=== PATIENT | female | born 1970 | race Caucasian/White ===

== ENCOUNTER → 2018-04-12 | Outpatient (REF) | payer OTHER ==
[2018-04-12 15:56] LABS: ALBUMIN 3.6 GM/DL (3.2-5.2); ALKALINE PHOSPHATASE 60 U/L (45-117); ALT/SGPT 29 U/L (12-78); ANION GAP 8 MEQ/L (8-16); AST/SGOT 17 U/L (7-37); BILIRUBIN,TOTAL 0.3 MG/DL (0.2-1.0); BLOOD UREA NITROGEN 15 MG/DL (7-18); CARBON DIOXIDE LEVEL 27 MEQ/L (21-32); CHLORIDE LEVEL 107 MEQ/L (98-107); CHOLESTEROL LEVEL 243 MG/DL (<200); CHOLESTEROL RISK RATIO 5.651 (<5); CREATININE FOR GFR 0.67 MG/DL (0.55-1.30); GLOMERULAR FILTRATION RATE > 60.0 (>58); GLUCOSE, FASTING 95 MG/DL (70-100); HDL CHOLESTEROL 43 MG/DL (>40); LDL CHOLESTEROL 161.2 MG/DL (<100); NON-HDL-C 200 MG/DL; POTASSIUM SERUM 4.5 MEQ/L (3.5-5.1); SODIUM LEVEL 142 MEQ/L (136-145); TOTAL PROTEIN 6.6 GM/DL (6.4-8.2); TRIGLYCERIDES LEVEL 194 MG/DL (<150)
== END ==
LOC: M SFHCLACO 08:22
DX: R03.0 Elevated blood-pressure reading, without diagnosis of hypertension (principal); Z68.41 Body mass index [BMI] 40.0-44.9, adult
CPT/HCPCS: 84443

== ENCOUNTER → 2018-09-09 | Outpatient (REF) | payer OTHER ==
[2018-09-19 08:06] LABS: HPV HYBRID CAPTURE II Negative (Negative)
== END ==
LOC: M SFHCLACO 15:24
DX: Z12.4 Encounter for screening for malignant neoplasm of cervix (principal)
CPT/HCPCS: 87070

== ENCOUNTER 2018-09-15 21:57 | Emergency (ER) | payer OTHER, MEDICAID ==
[2018-09-15] MEDS: NS 1,000 ML IV (22:52)
[2018-09-15] MEDS: KETOROLAC 30 MG/ML VIAL (J1885) IV (23:00)
[2018-09-15] MEDS: ONDANSETRON 4MG/2ML VIAL (J2405) IV (23:00)
[2018-09-15 23:03] LABS: KETONE, URINE AUTO RFX TRACE mg/dL (NEGATIVE); LEUKOCYTE ESTERASE UR AUTO RFX NEGATIVE (NEGATIVE); MUCUS, URINE RFX SMALL (NEGATIVE); NITRITE, URINE AUTO RFX NEGATIVE (NEGATIVE); RBC, URINE AUTO RFX 2 /HPF (0-3); SPECIFIC GRAVITY UR AUTO RFX 1.028 (1.002-1.035); SQUAM EPITHELIAL CELL UR AURFX 3 /HPF (0-6); WBC, URINE AUTO RFX 1 /HPF (0-3)
[2018-09-15 23:30] LABS: BASO # 0.1 10^3/uL (0.0-0.2); BASO % 0.5 % (0.0-1.0); EOS # 0.3 10^3/uL (0.0-0.50); EOS % 2.9 % (0.0-3.0); HEMOGLOBIN 14.5 g/dl (12.0-15.5); IMMATURE GRANULOCYTE % 0.3 % (0-3.0); LYMPH # 2.2 10^3/uL (1.5-4.5); LYMPH % 23.8 % (24.0-44.0); MEAN CORPUSCULAR HEMOGLOBIN 29.6 pg (27.0-33.0); MEAN CORPUSCULAR VOLUME 89.8 fl (80.0-96.0); MONO # 0.8 10^3/uL (0.0-0.8); MONO % 8.9 % (0.0-5.0); NEUTROPHILS # 5.9 10^3/uL (1.8-7.7); NEUTROPHILS % 63.6 % (36.0-66.0); PLATELET COUNT, AUTOMATED 285 10^3/uL (150-450); RED CELL DISTRIBUTION WIDTH 12.1 % (11.5-14.5); WHITE BLOOD COUNT 9.3 10^3/uL (4.0-10.0)
[2018-09-16 00:10] LABS: ALBUMIN 3.6 GM/DL (3.2-5.2); ALBUMIN/GLOBULIN RATIO 1.13 (1.00-1.93); ALKALINE PHOSPHATASE 63 U/L (45-117); ALT/SGPT 31 U/L (12-78); ANION GAP 8 MEQ/L (8-16); AST/SGOT 16 U/L (7-37); BILIRUBIN,DIRECT < 0.1 MG/DL (0.0-0.2); BILIRUBIN,TOTAL 0.3 MG/DL (0.2-1.0); BLOOD UREA NITROGEN 15 MG/DL (7-18); CALCIUM LEVEL 8.8 MG/DL (8.5-10.1); CARBON DIOXIDE LEVEL 28 MEQ/L (21-32); CHLORIDE LEVEL 105 MEQ/L (98-107); CREATININE FOR GFR 0.72 MG/DL (0.55-1.30); GLOMERULAR FILTRATION RATE > 60.0 (>58); GLUCOSE, FASTING 80 MG/DL (70-100); LIPASE 80 U/L (73-393); POTASSIUM SERUM 3.9 MEQ/L (3.5-5.1); SODIUM LEVEL 141 MEQ/L (136-145); TOTAL PROTEIN 6.8 GM/DL (6.4-8.2)
[2018-09-16] MEDS: diphenhydrAMINE INJ 50MG/ML VIAL (J1200) IV (00:33)
[2018-09-16] MEDS: HALOPERIDOL 5 MG/ML VIAL (J1630) IV ×2 (00:38→00:44)
[2018-09-16] MEDS: MAGNESIUM CITRATE 300 ML BTL PO (01:47)
== END 2018-09-16 01:55 | disposition home or self-care (01) ==
LOC: M ED 09-16 01:55
DX: K59.00 Constipation, unspecified (principal); R10.9 Unspecified abdominal pain; N28.1 Cyst of kidney, acquired; Z79.899 Other long term (current) drug therapy
CPT/HCPCS: J1200

== ENCOUNTER → 2019-07-27 | Outpatient (REF) | payer OTHER ==
[~2019-07-27] MED LIST: HYDR-3713; ONDA8TAB7; SMZ/TMP
[2019-07-27 13:22] LABS: ALBUMIN 3.6 GM/DL (3.2-5.2); ALT/SGPT 39 U/L (12-78); BILIRUBIN,TOTAL 0.3 MG/DL (0.2-1.0); BLOOD UREA NITROGEN 15 MG/DL (7-18); CARBON DIOXIDE LEVEL 28 MEQ/L (21-32); CHLORIDE LEVEL 105 MEQ/L (98-107); CHOLESTEROL LEVEL 278 MG/DL (<200); CHOLESTEROL RISK RATIO 5.346 (<5); CREATININE FOR GFR 0.76 MG/DL (0.55-1.30); GLOMERULAR FILTRATION RATE > 60.0 (>58); GLUCOSE, FASTING 91 MG/DL (70-100); HDL CHOLESTEROL 52 MG/DL (>40); LDL CHOLESTEROL 193 MG/DL (<100); NON-HDL-C 226 MG/DL; POTASSIUM SERUM 4.1 MEQ/L (3.5-5.1); SODIUM LEVEL 140 MEQ/L (136-145); TOTAL PROTEIN 6.9 GM/DL (6.4-8.2); TRIGLYCERIDES LEVEL 164 MG/DL (<150)
== END ==
LOC: M SFHCADAM 08:22
PROVIDERS: ATTEND Physician Assistant
DX: R03.0 Elevated blood-pressure reading, without diagnosis of hypertension (principal); Z68.41 Body mass index [BMI] 40.0-44.9, adult; E03.9 Hypothyroidism, unspecified

== ENCOUNTER → 2019-11-29 | Outpatient (REF) | payer OTHER ==
[~2019-11-29] MED LIST changes: +ONDA8TAB10; -ONDA8TAB7
[2019-11-29 13:23] LABS: ALBUMIN 3.7 GM/DL (3.2-5.2); ALT/SGPT 36 U/L (12-78); BILIRUBIN,TOTAL 0.2 MG/DL (0.2-1.0); BLOOD UREA NITROGEN 11 MG/DL (7-18); CALCIUM LEVEL 8.5 MG/DL (8.5-10.1); CARBON DIOXIDE LEVEL 29 MEQ/L (21-32); CHLORIDE LEVEL 108 MEQ/L (98-107); CHOLESTEROL LEVEL 268 MG/DL (<200); CHOLESTEROL RISK RATIO 5.153 (<5); CREATININE FOR GFR 0.68 MG/DL (0.55-1.30); GLOMERULAR FILTRATION RATE > 60.0 (>58); GLUCOSE, FASTING 96 MG/DL (70-100); HDL CHOLESTEROL 52 MG/DL (>40); LDL CHOLESTEROL 188 MG/DL (<100); NON-HDL-C 216 MG/DL; POTASSIUM SERUM 4.2 MEQ/L (3.5-5.1); SODIUM LEVEL 141 MEQ/L (136-145); TOTAL PROTEIN 6.9 GM/DL (6.4-8.2); TRIGLYCERIDES LEVEL 139 MG/DL (<150)
== END ==
LOC: M SFHCADAM 10:28
PROVIDERS: ATTEND Physician Assistant
DX: Z68.41 Body mass index [BMI] 40.0-44.9, adult (principal); R03.0 Elevated blood-pressure reading, without diagnosis of hypertension; E03.9 Hypothyroidism, unspecified

== ENCOUNTER → 2020-07-12 | Outpatient (CLI) | payer OTHER ==
--- NOTE | 2020-07-17 15:04 | REP ---
DIGITAL DIAGNOSTIC BILATERAL MAMMOGRAPHY WITH CAD, 3D TOMOGRAPHY, AND TARGETED RIGHT BREAST SONOGRAPHY HISTORY: History of right-sided mastitis, left-sided lymphadenopathy. Area of red hot lump or inflammation in the inferolateral quadrant on the right. Recent right breast lump x2 weeks. After antibiotics, decreased in size. The findings in the left axilla resolved as well post antibiotics. No comparison breast imaging available at this juncture. MAMMOGRAPHIC FINDINGS: Skin markers affixed to the skin at the site of the palpable lump of the right breast, and diagnostic views are used to augment standard views of the right breast in addition to 3D tomography. The marker projects in the anterior third inferolateral quadrant. Heterogeneous scattered fibroglandular elements are seen. The Volpara volumetric breast parenchymal density pattern is B. No dominant density is seen at the site of the palpable lump. No speculation or architectural distortion is seen. No mass or microcalcification is observed. Normal appearing lymph nodes are visible in each axilla. No evidence of adenopathy. No suspicious mammographic finding on either side on 3D tomography or standard or diagnostic images. SONOGRAPHIC FINDINGS: Targeted right breast sonography is performed in the area of the palpable lump. Heterogeneous fibroglandular background echotexture is seen. There are 1-2 mildly dilated ducts. No mass, cyst, or acoustic shadowing is seen. IMPRESSION: BI-RADS category 2, benign findings. Clinical follow up is recommended to document resolution of symptoms. No suspicious mammographic or sonographic finding. This mammogram was read with the assistance of an FDA approved computer aided detection device. [facility] cancer risk [facility] is 12.5%. Patient letter is letter M2. [facility]
== END ==
LOC: M WHC 08:50
PROVIDERS: ATTEND Physician Assistant
DX: N61.0 Mastitis without abscess (principal); R59.0 Localized enlarged lymph nodes

== ENCOUNTER → 2020-12-26 | Outpatient (REF) | payer OTHER ==
[2020-12-26 13:43] LABS: ALBUMIN 3.9 GM/DL (3.2-5.2); ALT/SGPT 34 U/L (12-78); BILIRUBIN,TOTAL 0.3 MG/DL (0.2-1.0); BLOOD UREA NITROGEN 16 MG/DL (7-18); CALCIUM LEVEL 9.5 MG/DL (8.5-10.1); CARBON DIOXIDE LEVEL 32 MEQ/L (21-32); CHLORIDE LEVEL 104 MEQ/L (98-107); CHOLESTEROL LEVEL 296 MG/DL (<200); CHOLESTEROL RISK RATIO 5.192 (<5); CREATININE FOR GFR 0.58 MG/DL (0.55-1.30); GLOMERULAR FILTRATION RATE > 60.0 (>58); GLUCOSE, FASTING 93 MG/DL (70-100); HDL CHOLESTEROL 57 MG/DL (>40); LDL CHOLESTEROL 208 MG/DL (<100); NON-HDL-C 239 MG/DL; POTASSIUM SERUM 4.8 MEQ/L (3.5-5.1); SODIUM LEVEL 139 MEQ/L (136-145); TOTAL PROTEIN 6.8 GM/DL (6.4-8.2); TRIGLYCERIDES LEVEL 157 MG/DL (<150)
== END ==
LOC: M SFHCADAM 10:38
PROVIDERS: ATTEND Physician Assistant
DX: R03.0 Elevated blood-pressure reading, without diagnosis of hypertension (principal); Z68.41 Body mass index [BMI] 40.0-44.9, adult; E03.9 Hypothyroidism, unspecified

== ENCOUNTER → 2021-03-05 | Outpatient (REF) | payer OTHER | LOC: M LAB REF 15:13 | PROVIDERS: ATTEND Physician Assistant | DX: D23.5 Other benign neoplasm of skin of trunk (principal) ==

== ENCOUNTER → 2021-04-11 | Outpatient (CLI) | payer OTHER ==
[~2021-04-11] MED LIST changes: +ONDA-84; -ONDA8TAB10
[2021-04-11 10:29] LABS: BASO # 0.1 10^3/uL (0.0-0.2); BASO % 1.1 % (0.0-1.0); EOS # 0.2 10^3/uL (0.0-0.5); EOS % 3.9 % (0.0-3.0); HEMATOCRIT 44.8 % (36.0-47.0); HEMOGLOBIN 14.5 g/dl (12.0-15.5); LYMPH # 1.3 10^3/uL (1.5-5.0); LYMPH % 23.8 % (24.0-44.0); MEAN CORPUSCULAR HEMOGLOBIN 29.8 pg (27.0-33.0); MEAN CORPUSCULAR HGB CONC 32.4 g/dl (32.0-36.5); MONO # 0.7 10^3/uL (0.0-0.8); NEUTROPHILS # 3.3 10^3/uL (1.5-8.5); PLATELET COUNT, AUTOMATED 303 10^3/uL (150-450); RED BLOOD COUNT 4.87 10^6/uL (4.00-5.40); WHITE BLOOD COUNT 5.6 10^3/uL (4.0-10.0)
== END ==
LOC: M LAB 08:42
PROVIDERS: ATTEND Physician Assistant
DX: R58 Hemorrhage, not elsewhere classified (principal)

== ENCOUNTER → 2021-04-11 | Outpatient (REF) | payer OTHER | LOC: M LAB REF 17:26 | PROVIDERS: ATTEND Physician Assistant | DX: D22.5 Melanocytic nevi of trunk (principal) ==

== ENCOUNTER → 2021-04-30 | Outpatient (REF) | payer OTHER ==
[~2021-04-30] MED LIST changes: -ONDA-84; +ONDA8TAB10
== END ==
LOC: M LAB REF 18:31
PROVIDERS: ATTEND Physician Assistant
DX: D23.5 Other benign neoplasm of skin of trunk (principal)

== ENCOUNTER → 2021-05-16 | Outpatient (REF) | payer OTHER | LOC: M SFHCADAM 14:39 | PROVIDERS: ATTEND Family Medicine | DX: R05 Cough (principal) ==

== ENCOUNTER → 2021-05-21 | Outpatient (REF) | payer OTHER ==
[2021-05-21 16:44] LABS: BASO # 0.1 10^3/uL (0.0-0.2); BASO % 0.8 % (0.0-1.0); EOS # 0.3 10^3/uL (0.0-0.5); EOS % 3.4 % (0.0-3.0); HEMATOCRIT 45.2 % (36.0-47.0); HEMOGLOBIN 14.6 g/dl (12.0-15.5); LYMPH # 1.9 10^3/uL (1.5-5.0); LYMPH % 20.2 % (24.0-44.0); MEAN CORPUSCULAR HEMOGLOBIN 29.6 pg (27.0-33.0); MEAN CORPUSCULAR HGB CONC 32.3 g/dl (32.0-36.5); MEAN CORPUSCULAR VOLUME 91.7 fl (80.0-96.0); MONO # 0.8 10^3/uL (0.0-0.8); NEUTROPHILS # 6.1 10^3/uL (1.5-8.5); NEUTROPHILS % 66.2 % (36.0-66.0); PLATELET COUNT, AUTOMATED 300 10^3/uL (150-450); RED BLOOD COUNT 4.93 10^6/uL (4.00-5.40); WHITE BLOOD COUNT 9.2 10^3/uL (4.0-10.0)
== END ==
LOC: M SFHCADAM 14:38
PROVIDERS: ATTEND Family Medicine
DX: R50.9 Fever, unspecified (principal); R19.7 Diarrhea, unspecified

== ENCOUNTER → 2021-05-21 | Outpatient (CLI) | payer OTHER ==
--- NOTE | 2021-05-21 20:51 | REP ---
INDICATION: DIARRHEA, COUGH, FEVER UNSPECIFIED CAUSE COMPARISON: None. TECHNIQUE: PA and lateral. FINDINGS: The mediastinum and cardiac silhouette are normal. The lung salgado are clear and without acute consolidation, effusion, or pneumothorax. The skeletal structures are intact and normal. IMPRESSION: No acute cardiopulmonary process. <Electronically signed by Moises Wade > 05/21/21 [id number]
== END ==
LOC: M ADAMS 14:40
PROVIDERS: ATTEND Family Medicine
DX: R05 Cough (principal); R50.9 Fever, unspecified; R19.7 Diarrhea, unspecified

== ENCOUNTER → 2021-05-22 | Outpatient (REF) | payer OTHER | LOC: M SFHCADAM 11:38 | PROVIDERS: ATTEND Family Medicine | DX: R19.7 Diarrhea, unspecified (principal) ==

== ENCOUNTER → 2021-07-15 | Outpatient (REF) | payer OTHER ==
[2021-07-15 14:21] LABS: ALBUMIN 3.4 GM/DL (3.2-5.2); ALT/SGPT 37 U/L (12-78); BILIRUBIN,TOTAL 0.2 MG/DL (0.2-1.0); BLOOD UREA NITROGEN 17 MG/DL (7-18); CALCIUM LEVEL 8.9 MG/DL (8.5-10.1); CARBON DIOXIDE LEVEL 29 MEQ/L (21-32); CHLORIDE LEVEL 108 MEQ/L (98-107); CHOLESTEROL LEVEL 293 MG/DL (<200); CHOLESTEROL RISK RATIO 4.725 (<5); CREATININE FOR GFR 0.75 MG/DL (0.55-1.30); GLOMERULAR FILTRATION RATE > 60.0 (>58); GLUCOSE, FASTING 127 MG/DL (70-100); HDL CHOLESTEROL 62 MG/DL (>40); LDL CHOLESTEROL 187 MG/DL (<100); NON-HDL-C 231 MG/DL; POTASSIUM SERUM 4.2 MEQ/L (3.5-5.1); SODIUM LEVEL 143 MEQ/L (136-145); TOTAL PROTEIN 6.6 GM/DL (6.4-8.2); TRIGLYCERIDES LEVEL 218 MG/DL (<150)
== END ==
LOC: M SFHCADAM 11:07
PROVIDERS: ATTEND Physician Assistant
DX: E03.9 Hypothyroidism, unspecified (principal)

== ENCOUNTER → 2021-07-21 | Outpatient (CLI) | payer OTHER | LOC: M LABSMTC 11:21 | PROVIDERS: ATTEND Pediatrics | DX: Z20.822 Contact with and (suspected) exposure to COVID-19 (principal) ==

== ENCOUNTER → 2021-10-11 | Outpatient (REF) ==
[~2021-10-11] MED LIST changes: +ONDA-84; -ONDA8TAB10
== END ==
LOC: M LABSMTC 12:48
PROVIDERS: ATTEND Pediatrics
DX: Z20.822 Contact with and (suspected) exposure to COVID-19 (principal)

== ENCOUNTER → 2021-12-18 | Outpatient (CLI) | payer OTHER | LOC: M PLAIMG 10:18 → M PLARAD 10:18 | PROVIDERS: ATTEND Physician Assistant | DX: M25.511 Pain in right shoulder (principal); M25.571 Pain in right ankle and joints of right foot; S80.02XA Contusion of left knee, initial encounter; X58.XXXA Exposure to other specified factors, initial encounter; Y92.9 Unspecified place or not applicable; Y93.9 Activity, unspecified; Y99.9 Unspecified external cause status ==

== ENCOUNTER → 2022-04-07 | Outpatient (CLI) | payer OTHER ==
[2022-04-07 13:51] LABS: ALBUMIN 3.8 GM/DL (3.2-5.2); ALT/SGPT 32 U/L (12-78); BILIRUBIN,TOTAL 0.3 MG/DL (0.2-1.0); BLOOD UREA NITROGEN 14 MG/DL (7-18); CALCIUM LEVEL 8.9 MG/DL (8.5-10.1); CARBON DIOXIDE LEVEL 32 MEQ/L (21-32); CHLORIDE LEVEL 107 MEQ/L (98-107); CHOLESTEROL LEVEL 297 MG/DL (<200); CHOLESTEROL RISK RATIO 4.868 (<5); CREATININE FOR GFR 0.58 MG/DL (0.55-1.30); FERRITIN 46 NG/ML (8-252); FREE T4 1.02 NG/DL (0.76-1.46); GLOMERULAR FILTRATION RATE > 60.0 (>58); GLUCOSE, FASTING 88 MG/DL (70-100); HDL CHOLESTEROL 61 MG/DL (>40); LDL CHOLESTEROL 200 MG/DL (<100); MAGNESIUM LEVEL 1.9 MG/DL (1.8-2.4); NON-HDL-C 236 MG/DL; POTASSIUM SERUM 4.5 MEQ/L (3.5-5.1); SODIUM LEVEL 142 MEQ/L (136-145); TOTAL PROTEIN 6.9 GM/DL (6.4-8.2); TRIGLYCERIDES LEVEL 181 MG/DL (<150)
[2022-04-07 13:55] LABS: MALB URINE SIEMENS 80.7 MG/L; MAU/CREAT RATIO 58.4 MCG/MG (0.0-30.0)
[2022-04-07 14:03] LABS: HEMOGLOBIN A1c 5.3 %
[2022-04-07 14:05] LABS: TOTAL 25(OH) VITAMIN D 25.3 NG/ML (30.0-100.0); VITAMIN B12 LEVEL 331 PG/ML (247-911)
== END ==
LOC: M PLALAB 11:05
PROVIDERS: ATTEND Physician Assistant
DX: I10 Essential (primary) hypertension (principal); E78.2 Mixed hyperlipidemia; E03.9 Hypothyroidism, unspecified; Z13.21 Encounter for screening for nutritional disorder; Z12.11 Encounter for screening for malignant neoplasm of colon

== ENCOUNTER → 2023-04-28 | Outpatient (REF) | payer BC, OTHER | LOC: M SFHCADAM 12:22 | PROVIDERS: ATTEND Physician Assistant | DX: J06.9 Acute upper respiratory infection, unspecified (principal) ==

== ENCOUNTER → 2023-08-10 | Outpatient (REF) | payer BC, OTHER, MEDICAID | LOC: M SFHCADAM 17:25 | PROVIDERS: ATTEND Physician Assistant | DX: L02.415 Cutaneous abscess of right lower limb (principal) ==

== ENCOUNTER → 2023-08-13 | Outpatient (REF) | payer OTHER | LOC: M LAB REF 14:35 | PROVIDERS: ATTEND Surgery | DX: L03.115 Cellulitis of right lower limb (principal) ==

== ENCOUNTER → 2023-10-08 | Outpatient (REF) | payer MEDICAID ==
[2023-10-08 13:42] LABS: BASO # 0.1 10^3/uL (0.0-0.2); EOS # 0.2 10^3/uL (0.0-0.5); EOS % 3.3 % (0.0-3.0); HEMATOCRIT 48.8 % (36.0-47.0); HEMOGLOBIN 15.7 g/dl (12.0-15.5); LYMPH # 1.8 10^3/uL (1.5-5.0); LYMPH % 28.8 % (24.0-44.0); MEAN CORPUSCULAR HEMOGLOBIN 29.6 pg (27.0-33.0); MEAN CORPUSCULAR HGB CONC 32.2 g/dl (32.0-36.5); MEAN CORPUSCULAR VOLUME 92.1 fl (80.0-96.0); MONO # 0.6 10^3/uL (0.0-0.8); MONO % 9.6 % (2.0-8.0); NEUTROPHILS # 3.5 10^3/uL (1.5-8.5); PLATELET COUNT, AUTOMATED 276 10^3/uL (150-450); WHITE BLOOD COUNT 6.1 10^3/uL (4.0-10.0)
[2023-10-08 14:05] LABS: HEMOGLOBIN A1c 5.5 % (4.0-6.0)
[2023-10-08 14:14] LABS: ALBUMIN 3.8 G/DL (3.2-5.2); ALKALINE PHOSPHATASE 72 U/L (46-116); ALT/SGPT 55 U/L (7.0-40); AST/SGOT 25 U/L (<34); BILIRUBIN,TOTAL 0.4 MG/DL (0.3-1.2); BLOOD UREA NITROGEN 18 MG/DL (9-23); CALCIUM LEVEL 9.2 MG/DL (8.5-10.1); CARBON DIOXIDE LEVEL 33 MMOL/L (20-31); CHLORIDE LEVEL 105 MMOL/L (98-107); CREATININE FOR GFR 0.78 MG/DL (0.55-1.30); GLOMERULAR FILTRATION RATE > 60.0 (>51); GLUCOSE, FASTING 92 MG/DL (60-100); POTASSIUM SERUM 5.2 MMOL/L (3.5-5.1); SODIUM LEVEL 141 MMOL/L (136-145); TOTAL PROTEIN 6.8 G/DL (5.7-8.2)
[2023-10-08 14:15] LABS: FREE T4 1.39 NG/DL (0.89-1.76); TOTAL 25(OH) VITAMIN D 67.3 NG/ML (20.0-100.0)
== END ==
LOC: M SFHCADAM 10:52
PROVIDERS: ATTEND Physician Assistant
DX: I10 Essential (primary) hypertension (principal); Z68.41 Body mass index [BMI] 40.0-44.9, adult; E03.9 Hypothyroidism, unspecified; E55.9 Vitamin D deficiency, unspecified

== ENCOUNTER → 2024-08-17 | Outpatient (CLI) | payer OTHER | LOC: M WHC 14:10 | PROVIDERS: ATTEND Nurse Practitioner Family | DX: Z12.31 Encounter for screening mammogram for malignant neoplasm of breast (principal); R92.333 Mammographic heterogeneous density, bilateral breasts ==

== ENCOUNTER → 2024-08-17 | Outpatient (REF) | payer OTHER ==
[2024-08-21 07:01] LABS: HPV APTIMA Not Detected (Not Detected)
== END ==
LOC: M SFHCWAGY 17:55
PROVIDERS: ATTEND Nurse Practitioner Family
DX: Z12.4 Encounter for screening for malignant neoplasm of cervix (principal); R87.610 Atypical squamous cells of undetermined significance on cytologic smear of cervix (ASC-US)

== ENCOUNTER → 2024-12-19 | Outpatient (REF) | payer OTHER | LOC: M SFHCWAGY 13:48 | PROVIDERS: ATTEND Nurse Practitioner Family | DX: L91.8 Other hypertrophic disorders of the skin (principal) ==

== ENCOUNTER → 2024-12-20 | Outpatient (REF) | payer OTHER ==
[2024-12-20 17:39] LABS: BASO # 0.1 10^3/uL (0.0-0.2); BASO % 0.7 % (0.0-1.0); EOS # 0.4 10^3/uL (0.0-0.5); EOS % 5.9 % (0.0-3.0); HEMATOCRIT 47.9 % (36.0-47.0); HEMOGLOBIN 15.4 g/dl (12.0-15.5); LYMPH # 1.5 10^3/uL (1.5-5.0); LYMPH % 21.6 % (24.0-44.0); MEAN CORPUSCULAR HEMOGLOBIN 29.7 pg (27.0-33.0); MEAN CORPUSCULAR HGB CONC 32.2 g/dl (32.0-36.5); MEAN CORPUSCULAR VOLUME 92.5 fl (80.0-96.0); MONO # 0.5 10^3/uL (0.0-0.8); MONO % 7.6 % (2.0-8.0); NEUTROPHILS # 4.3 10^3/uL (1.5-8.5); NEUTROPHILS % 63.9 % (36.0-66.0); PLATELET COUNT, AUTOMATED 264 10^3/uL (150-450); RED BLOOD COUNT 5.18 10^6/uL (4.00-5.40); WHITE BLOOD COUNT 6.8 10^3/uL (4.0-10.0)
[2024-12-20 18:04] LABS: ALBUMIN 3.9 G/DL (3.2-5.2); ALKALINE PHOSPHATASE 68 U/L (35-104); ALT/SGPT 65 U/L (7.0-40); AST/SGOT 37 U/L (<34); BILIRUBIN,TOTAL 0.4 MG/DL (0.3-1.2); BLOOD UREA NITROGEN 14 MG/DL (9-23); CALCIUM LEVEL 9.7 MG/DL (8.5-10.1); CARBON DIOXIDE LEVEL 33 MMOL/L (20-31); CHLORIDE LEVEL 103 MMOL/L (98-107); CHOLESTEROL LEVEL 186 MG/DL (<200); CHOLESTEROL RISK RATIO 2.57 (<5); CREATININE FOR GFR 0.72 MG/DL (0.55-1.30); GLOMERULAR FILTRATION RATE > 60.0 (>51); GLUCOSE, FASTING 96 MG/DL (60-100); HDL CHOLESTEROL 72.3 MG/DL (>40); LDL CHOLESTEROL 79.1 MG/DL (<100); MAGNESIUM LEVEL 1.8 MG/DL (1.8-2.4); NON-HDL-C 113.7 MG/DL; POTASSIUM SERUM 4.7 MMOL/L (3.5-5.1); SODIUM LEVEL 141 MMOL/L (136-145); TOTAL PROTEIN 7.2 G/DL (5.7-8.2); TRIGLYCERIDES LEVEL 173 MG/DL (<150)
[2024-12-20 18:05] LABS: FREE T4 1.28 NG/DL (0.89-1.76)
[2024-12-20 18:06] LABS: THYROID STIMULATING HORMONE 4.744 uIU/ML (0.55-4.78); TOTAL 25(OH) VITAMIN D 35.6 NG/ML (20.0-100.0)
[2024-12-20 18:08] LABS: HEMOGLOBIN A1c 5.6 % (4.0-6.0)
== END ==
LOC: M SFHCADAM 12:08
PROVIDERS: ATTEND Physician Assistant
DX: Z00.00 Encounter for general adult medical examination without abnormal findings (principal); E03.9 Hypothyroidism, unspecified; I10 Essential (primary) hypertension; E78.2 Mixed hyperlipidemia; Z11.59 Encounter for screening for other viral diseases

== ENCOUNTER → 2025-08-27 | Outpatient (CLI) | payer OTHER ==
[2025-08-27 14:40] LABS: LUTEINIZING HORMONE 21.0 mIU/ML; PROLACTIN 5.84 NG/ML
[2025-08-27 14:41] LABS: ESTRADIOL 24.8 PG/ML
[2025-08-27 14:45] LABS: PROGESTERONE 0.26 NG/ML
== END ==
LOC: M PLALAB 11:46
PROVIDERS: ATTEND Nurse Practitioner Family
DX: Z01.419 Encounter for gynecological examination (general) (routine) without abnormal findings (principal)

== ENCOUNTER → 2025-08-27 | Outpatient (CLI) | payer OTHER | LOC: M WHC 09:46 | PROVIDERS: ATTEND Nurse Practitioner Family | DX: Z12.31 Encounter for screening mammogram for malignant neoplasm of breast (principal) ==

== ENCOUNTER → 2025-09-26 | Outpatient (CLI) | payer OTHER | LOC: M WHC 07:59 | PROVIDERS: ATTEND Nurse Practitioner Family | DX: R92.8 Other abnormal and inconclusive findings on diagnostic imaging of breast (principal); N95.0 Postmenopausal bleeding; N85.8 Other specified noninflammatory disorders of uterus ==